=== PATIENT | female | born 1930 | race Caucasian/White ===

== ENCOUNTER 2016-05-12 14:01 | Outpatient (CLI) | payer MEDICARE, OTHER ==
[2016-05-12 19:09] LABS: BASOPHILS # (AUTO) 0.1 10^3/uL (0.0-0.1); BASOPHILS % (AUTO) 1.2 %; EOSINOPHILS # (AUTO) 0.2 10^3/uL (0.0-0.7); EOSINOPHILS % (AUTO) 2.6 %; HCT - HEMATOCRIT 37.9 % (37.0-47.0); HGB - HEMOGLOBIN 12.9 g/dL (12.0-16.0); LYMPHOCYTES # (AUTO) 1.6 10^3/uL (1.5-3.5); LYMPHOCYTES % (AUTO) 22.2 %; MEAN CORPUSCULAR HEMOGLOBIN 32.7 pg (27.0-31.0); MEAN CORPUSCULAR HGB CONC 33.9 g/dL (32.0-36.0); MEAN CORPUSCULAR VOLUME 96.4 fL (81.0-99.0); MEAN PLATELET VOLUME 8.3 fL (7.9-10.8); MONOCYTES # (AUTO) 0.7 10^3/uL (0.0-1.0); MONOCYTES % (AUTO) 9.4 %; NEUTROPHILS # (AUTO) 4.8 10^3/uL (1.5-6.6); NEUTROPHILS % (AUTO) 64.6 %; NUCLEATED RED BLOOD CELLS AUTO 0.1 /100WBC; RED BLOOD COUNT 3.93 10^6/uL (4.20-5.40); RED CELL DISTRIBUTION WIDTH 12.8 % (12.0-15.0); UNCORRECTED WHITE BLOOD COUNT 7.4 x10^3/uL; WHITE BLOOD COUNT 7.4 x10^3/uL (4.8-10.8)
[2016-05-12 19:33] LABS: ALBUMIN/GLOBULIN RATIO 1.6 (1.0-2.2); BILIRUBIN,TOTAL 0.4 mg/dL (0.2-1.0); CALCIUM 9.5 mg/dL (8.5-10.3); CREATININE 0.9 mg/dL (0.4-1.0); POTASSIUM 4.1 mmol/L (3.5-5.0); TOTAL PROTEIN 6.6 g/dL (6.7-8.2)
== END 2016-05-12 14:02 | disposition home or self-care (01) ==
LOC: LAB.WCP 14:01
PROVIDERS: ATTEND Family Medicine
DX: I10 Essential (primary) hypertension (principal); D51.0 Vitamin B12 deficiency anemia due to intrinsic factor deficiency; R00.2 Palpitations
CPT/HCPCS: 36415; 80053; 82607; 85025

== ENCOUNTER 2016-06-14 10:43 | Outpatient (CLI) | payer MEDICARE, OTHER | END 2016-06-14 10:44 | DX: D51.0 Vitamin B12 deficiency anemia due to intrinsic factor deficiency (principal) ==

== ENCOUNTER 2016-07-18 09:58 | Outpatient (CLI) | payer MEDICARE, OTHER | END 2016-07-18 09:59 | disposition home or self-care (01) | DX: M81.0 Age-related osteoporosis without current pathological fracture (principal) ==

== ENCOUNTER 2016-08-02 10:06 | Outpatient (CLI) | payer MEDICARE, OTHER | END 2016-08-02 10:07 | disposition home or self-care (01) | DX: M25.561 Pain in right knee (principal); R22.41 Localized swelling, mass and lump, right lower limb ==

== ENCOUNTER 2016-08-27 12:31 | Outpatient (CLI) | payer MEDICARE, OTHER | END 2016-08-27 12:32 | disposition home or self-care (01) | LOC: DI 12:31 | PROVIDERS: ATTEND Family Medicine | DX: I49.3 Ventricular premature depolarization (principal) | CPT/HCPCS: 93306 ==

== ENCOUNTER 2016-10-30 06:47 | Emergency (ER) | payer MEDICARE, OTHER ==
[2016-10-30 06:57] VITALS: BP 141/86
[2016-10-30 07:04] LABS: BILIRUBIN,URINE NEGATIVE (NEGATIVE)
--- NOTE | 2016-10-30 07:04 | ED Physician Documentation ---
PD HPI FEMALE - Stated complaint Stated Complaint: FEMALE - Chief complaint Chief Complaint: General - History obtained from History obtained from: Patient - History of Present Illness Timing - onset: Yesterday Timing - duration: Days (1) Timing - details: Gradual onset Pain level max: 0, 2 Pain level max: 1 Associated symptoms: Dysuria, Urinary frequency, Hematuria. No: Fever, Back pain, Vaginal pain, Vaginal bleeding, Vaginal discharge Similar symptoms before: Diagnosis (UTI) Review of Systems Constitutional: denies: Fever, Chills Ears: denies: Ear pain Nose: denies: Rhinorrhea / runny nose, Congestion Throat: denies: Sore throat Cardiac: denies: Chest pain / pressure Respiratory: denies: Cough, Wheezing GI: denies: Abdominal Pain, Nausea, Vomiting, Diarrhea Skin: denies: Rash Musculoskeletal: denies: Neck pain, Back pain Neurologic: denies: Headache PD PAST MEDICAL HISTORY - Past Medical History Cardiovascular: Hypertension Respiratory: None Neuro: None Endocrine/Autoimmune: None HEENT: Other - Past Surgical History Past Surgical History: Yes General: Colonoscopy, EGD 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 HEENT: Cataracts - Present Medications Home Medications: Ambulatory Orders Medication Instructions Recorded Confirmed Alendronate [Fosamax] 1 tab PO .FREQ 11/22/15 11/22/15 Cyanocobalamin [Vitamin B-12] 1,000 mcg IM ONCE #2 vial 11/22/15 Fluticasone [Flonase] 1 applic REYNA .FREQ 11/22/15 11/22/15 Hydrochlorothiazide 12.5 mg PO .FREQ 11/22/15 11/22/15 Lisinopril 0.5 mg PO .FREQ 11/22/15 11/22/15 Potassium Citrate [Urocit-K] 0.5 tab PO .FREQ 11/22/15 11/22/15 Pramipexole [Mirapex] 0.125 mg PO BID 11/22/15 11/22/15 Cephalexin [Keflex] 500 mg PO Q6H #28 capsule 10/30/16 - Allergies Allergies/Adverse Reactions: Allergies Allergy/AdvReac Type Severity Reaction Status Date / Time nitrofurantoin Allergy Unknown Verified 11/22/15 21:44 nitrofurantoin Allergy Unknown Verified 11/22/15 21:44 macrocrystalline * [From Macrobid] Sulfa (Sulfonamide Allergy Nausea Verified 11/22/15 21:44 Antibiotics) sulfamethoxazole Allergy Nausea Verified 11/22/15 21:44 [From Septra] trimethoprim [From ] Allergy Nausea Verified 11/22/15 21:44 - Social History Does the pt smoke?: No Smoking Status: Never smoker Does the pt drink ETOH?: No Does the pt have substance abuse?: No - Immunizations Immunizations are current?: Yes PD ED PE NORMAL - Vitals Vital signs reviewed: Yes - General General: Alert and oriented X 3, No acute distress - Cardiac Cardiac: RRR - Respiratory Respiratory: No respiratory distress, Clear bilaterally - Abdomen Abdomen: Soft, Non tender, Non distended - Back Back: No CVA TTP - Derm Derm: Warm and dry - Neuro Neuro: Alert and oriented X 3 - Psych Psych: Normal mood, Normal affect Results - Vitals Vitals: Vital Signs - 24 hr 10/30/16 06:54 Temperature 36.6 C Heart Rate 89 Respiratory 16 Rate Blood Pressure 141/86 H O2 Saturation 99 Oxygen O2 Source Room air - Labs Labs: Laboratory Tests 10/30/16 06:50 Urine Color YELLOW Urine Clarity HAZY Urine pH 6.0 Ur Specific [place] 1.025 Urine Protein TRACE Urine Glucose (UA) NEGATIVE Urine Ketones 40 H Urine Occult Blood MODERATE H Urine Nitrite POSITIVE H Urine Bilirubin NEGATIVE Urine Urobilinogen 0.2 (NORMAL) Ur Leukocyte Esterase MODERATE H Urine RBC 11-25 H Urine WBC >25 H Ur Squamous Epith Cells FEW Squamous Urine Bacteria Many H Ur Microscopic Review INDICATED Urine Culture Comments INDICATED PD MEDICAL DECISION MAKING - ED course Complexity details: reviewed results, re-evaluated patient, considered differential, d/w patient, d/w family ED course: Patient is an 86-year-old female who presents to the emergency department with symptoms of UTI. Urinalysis is consistent with UTI. No other complaints. No fevers. She is well-appearing, nontoxic. Afebrile. No CVA tenderness. Will place on antibiotics and follow-up with her doctor. Patient counseled regarding signs and symptoms for which I believe and urgent re-evaluation would be necessary. Patient with good understanding of and agreement to plan and is comfortable going home at this time This document was made in part using voice recognition software. While efforts are made to proofread this document, sound alike and grammatical errors may occur. Departure - Departure Disposition: 01 Home, Self Care Clinical Impression: UTI (urinary tract infection) Qualifiers: Urinary tract infection type: acute cystitis Hematuria presence: with hematuria Qualified Code(s): N30.01 - Acute cystitis with hematuria Condition: Good Instructions: ED UTI Cystitis Female Follow-Up: Isabel Monroy DO [Primary Care Provider] - Within 1 week Prescriptions: Cephalexin [Keflex] 500 mg PO Q6H #28 capsule Comments: Take all antibiotics until gone. Return if you worsen.
[2016-10-30 07:05] LABS: UA w/ MICROSCOPIC CHARGE YES
[2016-10-30] MEDS ORDERED: CEPHALEXIN 250 MG CAPSULE PO STA (07:07)
[2016-10-30 07:12] LABS: WBC,URINE >25 /HPF (0-5)
[2016-10-30 07:13] LABS: UR CULTURE IF IND INDICATED
[2016-10-30] MEDS ORDERED: CEPHALEXIN 250 MG CAPSULE PO ONE (07:15)
== END 2016-10-30 07:23 | disposition home or self-care (01) ==
LOC: ED 06:47
DX: N30.01 Acute cystitis with hematuria (principal); I10 Essential (primary) hypertension; Z96.659 Presence of unspecified artificial knee joint
CPT/HCPCS: 81001; 87077; 87086; 87181; 99283; A9270; 81003

== ENCOUNTER 2017-01-10 08:45 | Outpatient (CLI) | payer MEDICARE, OTHER ==
--- NOTE | 2017-01-10 15:21 | DEXA Report ---
DEXA SCAN: 01/10/2017 CLINICAL INDICATION: Osteoporosis. TECHNIQUE: Dual energy x-ray absorptiometry (DXA) was performed on a [employer] system. Regions measured are the AP spine, femoral neck, and, if needed, forearm. COMPARISON: 07/18/2016. In accordance with the International Society for Clinical Densitometry (ISCD) guidelines, data from previous exams may be reanalyzed using current recommendations and techniques. This is done to allow a more accurate basis for comparison with the current study. FINDINGS The data for the lumbar spine is as follows: REGION BMD (g/cm/cm) T-SCORE Z-SCORE L1 1.228 0.8 3.2 L2 1.317 1.0 3.4 L3 1.385 1.5 3.9 L4 1.567 3.1 5.5 TOTAL 1.379 1.7 4.1 NOTE: All evaluable vertebrae are used for classification. The data for the hip is as follows: REGION BMD (g/cm/cm) T-SCORE Z-SCORE Neck 0.677 -2.6 0.2 TOTAL 0.722 -2.3 0.5 NOTE: The femoral neck or total proximal femur, whichever is lowest, is used for classification. DXA RESULTS SUMMARY: Spine SCAN DATE AGE BMD T-SCORE BMD CHANGE VS BASELINE BMD CHANGE VS PREVIOUS 01/10/2017 87 1.379 -- 0.013 1.0 07/18/2016 86 1.366 --- --- --- * Denotes significant change at the 95% confidence level. Denotes dissimilar scan types or analysis methods. DXA RESULTS SUMMARY: Total hip SCAN DATE AGE BMD T-SCORE BMD CHANGE VS BASELINE BMD CHANGE VS PREVIOUS 01/10/2017 87 0.722 --- 0.015 2.1 07/18/2016 86 0.707 --- --- --- * Denotes significant change at the 95% confidence level. Denotes dissimilar scan types or analysis methods. IMPRESSION 1. THE WHO CLASSIFICATION BASED ON THE INTERNATIONAL REFERENCE STANDARD IS OSTEOPOROSIS (REFERENCE LEFT FEMORAL NECK. THE FRACTURE RISK IS HIGH. 2. THERE HAS BEEN NO STATISTICALLY SIGNIFICANT INTERVAL CHANGE FROM 07/18/2016. RECOMMENDATION: Patients with diagnosis of osteoporosis or osteopenia should have regular bone mineral density assessment. For those eligible for Medicare, routine testing is allowed once every 2 years. Testing frequency can be increased for patients who have rapidly progressing disease or for those who are receiving medical therapy to restore bone mass. COMMENT: World Health Organization (WHO) definitions for osteoporosis and osteopenia: NORMAL BMD: T-score at -1.0 or higher, fracture risk is low. OSTEOPENIA BMD: T-score between -1.0 and -2.5, fracture risk is increased. OSTEOPOROSIS BMD: T-score at -2.5 or lower, fracture risk high. National Osteoporosis Foundation recommends: 1. Obtain adequate dietary calcium (at least 1200 mg per day) and vitamin D (400 -800 international units per day). 2. Participate, as appropriate, in regular weightbearing and muscle- strengthening exercise. 3. Avoid tobacco use and reduce alcohol and caffeine intake. 4. For more detailed information see the website at www.NOF.org. MTDD
== END 2017-01-10 08:46 | disposition home or self-care (01) ==
LOC: DI 08:45
PROVIDERS: ATTEND Family Medicine
DX: M81.0 Age-related osteoporosis without current pathological fracture (principal)
CPT/HCPCS: 77080

== ENCOUNTER 2017-01-18 11:40 | Outpatient (CLI) | payer MEDICARE, OTHER ==
[2017-01-18 19:00] LABS: BASOPHILS % (AUTO) 0.8 %; EOSINOPHILS # (AUTO) 0.1 10^3/uL (0.0-0.7); EOSINOPHILS % (AUTO) 1.6 %; HGB - HEMOGLOBIN 12.8 g/dL (12.0-16.0); LYMPHOCYTES # (AUTO) 0.9 10^3/uL (1.5-3.5); LYMPHOCYTES % (AUTO) 17.4 %; MEAN CORPUSCULAR HEMOGLOBIN 32.2 pg (27.0-31.0); MEAN CORPUSCULAR VOLUME 97.6 fL (81.0-99.0); MEAN PLATELET VOLUME 7.3 fL (7.9-10.8); MONOCYTES # (AUTO) 0.5 10^3/uL (0.0-1.0); MONOCYTES % (AUTO) 9.9 %; NEUTROPHILS # (AUTO) 3.6 10^3/uL (1.5-6.6); NEUTROPHILS % (AUTO) 70.3 %; NUCLEATED RED BLOOD CELLS AUTO 0.1 /100WBC; RED BLOOD COUNT 3.99 10^6/uL (4.20-5.40); UNCORRECTED WHITE BLOOD COUNT 5.1 x10^3/uL; WHITE BLOOD COUNT 5.1 x10^3/uL (4.8-10.8)
[2017-01-18 19:17] LABS: ALBUMIN/GLOBULIN RATIO 1.5 (1.0-2.2); BILIRUBIN,TOTAL 0.5 mg/dL (0.2-1.0); CALCIUM 9.1 mg/dL (8.5-10.3); CREATININE 0.7 mg/dL (0.4-1.0); POTASSIUM 3.8 mmol/L (3.5-5.0); TOTAL PROTEIN 6.6 g/dL (6.7-8.2)
== END 2017-01-18 11:41 | disposition home or self-care (01) ==
LOC: LAB.WCP 11:40
PROVIDERS: ATTEND Family Medicine
DX: M81.0 Age-related osteoporosis without current pathological fracture (principal); D51.0 Vitamin B12 deficiency anemia due to intrinsic factor deficiency
CPT/HCPCS: 36415; 80053; 82306; 82607; 85025

== ENCOUNTER 2017-07-17 08:00 | Outpatient (CLI) | payer MEDICARE, OTHER ==
[2017-07-17 19:22] LABS: BASOPHILS # (AUTO) 0.1 10^3/uL (0.0-0.1); BASOPHILS % (AUTO) 0.9 %; EOSINOPHILS # (AUTO) 0.1 10^3/uL (0.0-0.7); EOSINOPHILS % (AUTO) 1.4 %; HGB - HEMOGLOBIN 12.8 g/dL (12.0-16.0); LYMPHOCYTES # (AUTO) 1.4 10^3/uL (1.5-3.5); LYMPHOCYTES % (AUTO) 18.8 %; MEAN CORPUSCULAR HEMOGLOBIN 32.8 pg (27.0-31.0); MEAN CORPUSCULAR HGB CONC 34.1 g/dL (32.0-36.0); MEAN CORPUSCULAR VOLUME 96.2 fL (81.0-99.0); MEAN PLATELET VOLUME 7.5 fL (7.9-10.8); MONOCYTES # (AUTO) 0.7 10^3/uL (0.0-1.0); MONOCYTES % (AUTO) 9.8 %; NEUTROPHILS % (AUTO) 69.1 %; PLT - PLATELET COUNT 286 10^3/uL (130-450); RED BLOOD COUNT 3.91 10^6/uL (4.20-5.40); RED CELL DISTRIBUTION WIDTH 12.5 % (12.0-15.0); WHITE BLOOD COUNT 7.2 x10^3/uL (4.8-10.8)
[2017-07-17 19:44] LABS: % IRON SATURATION 20 % (20-50); ALBUMIN 4.2 g/dL (3.2-5.5); ALBUMIN/GLOBULIN RATIO 1.7 (1.0-2.2); ALKALINE PHOSPHATASE 70 IU/L (42-121); ALT ALANINE AMINOTRANSFERASE 14 IU/L (10-60); AST ASPARTATE AMINOTRANSFERASE 24 IU/L (10-42); BILIRUBIN,TOTAL 0.3 mg/dL (0.2-1.0); BUN - BLOOD UREA NITROGEN 19 mg/dL (6-20); CALCIUM 9.3 mg/dL (8.5-10.3); CARBON DIOXIDE - CO2 29 mmol/L (21-32); CHLORIDE 99 mmol/L (101-111); CREATININE 0.6 mg/dL (0.4-1.0); GFR - MDRD 94 (>89); GLUCOSE 107 mg/dL (70-100); IRON 61 ug/dL (28-170); SODIUM 135 mmol/L (135-145); TOTAL IRON BINDING CAPACITY 307 ug/dL (250-450); TOTAL PROTEIN 6.7 g/dL (6.7-8.2); TRANSFERRIN 219 mg/dL (192-382)
[2017-07-17 19:53] LABS: THYROID STIMULATING HORMONE 1.52 uIU/mL (0.34-5.60)
[2017-07-17 19:59] LABS: FERRITIN 33.1 ng/mL (11.0-306.8)
== END 2017-07-17 08:01 | disposition home or self-care (01) ==
LOC: LAB.WCP 08:00
PROVIDERS: ATTEND Family Medicine
DX: D51.0 Vitamin B12 deficiency anemia due to intrinsic factor deficiency (principal); I10 Essential (primary) hypertension
CPT/HCPCS: 36415; 80053; 82607; 82728; 83540; 84443; 84466; 85025

== ENCOUNTER 2017-09-26 09:36 | Outpatient (CLI) | payer MEDICARE, OTHER ==
[2017-09-26 12:42] LABS: BASOPHILS # (AUTO) 0.1 10^3/uL (0.0-0.1); BASOPHILS % (AUTO) 0.9 %; EOSINOPHILS # (AUTO) 0.1 10^3/uL (0.0-0.7); EOSINOPHILS % (AUTO) 1.5 %; HGB - HEMOGLOBIN 13.2 g/dL (12.0-16.0); LYMPHOCYTES % (AUTO) 16.5 %; MEAN CORPUSCULAR HEMOGLOBIN 33.3 pg (27.0-31.0); MEAN CORPUSCULAR HGB CONC 33.9 g/dL (32.0-36.0); MEAN CORPUSCULAR VOLUME 98.2 fL (81.0-99.0); MEAN PLATELET VOLUME 7.3 fL (7.9-10.8); MONOCYTES # (AUTO) 0.5 10^3/uL (0.0-1.0); MONOCYTES % (AUTO) 7.7 %; NEUTROPHILS # (AUTO) 4.4 10^3/uL (1.5-6.6); NEUTROPHILS % (AUTO) 73.4 %; PLT - PLATELET COUNT 309 10^3/uL (130-450); RED BLOOD COUNT 3.97 10^6/uL (4.20-5.40); RED CELL DISTRIBUTION WIDTH 12.2 % (12.0-15.0)
[2017-09-26 12:49] LABS: BILIRUBIN,URINE NEGATIVE (NEGATIVE); GLUCOSE, URINE (UA) NEGATIVE (NEGATIVE); KETONES,URINE (UA) TRACE mg/dL (NEGATIVE); LEUKOCYTE ESTERASE, URINE SMALL (NEGATIVE); NITRITE,URINE POSITIVE (NEGATIVE); OCCULT BLOOD,URINE NEGATIVE (NEGATIVE); PROTEIN,URINE NEGATIVE (NEGATIVE); UROBILINOGEN,URINE 1 (NORMAL) E.U./dL (NORMAL)
[2017-09-26 12:54] LABS: CLARITY,URINE HAZY (CLEAR)
[2017-09-26 13:03] LABS: BACTERIA,URINE Moderate /HPF (None Seen); RBC,URINE 0-5 /HPF (0-5); SQUAMOUS EPITHELIAL CELL,UR FEW Squamous (<= Few)
[2017-09-26 13:16] LABS: ALBUMIN 3.8 g/dL (3.2-5.5); ALBUMIN/GLOBULIN RATIO 1.3 (1.0-2.2); BILIRUBIN,TOTAL 0.6 mg/dL (0.2-1.0); CALCIUM 9.4 mg/dL (8.5-10.3); CREATININE 0.8 mg/dL (0.4-1.0); TOTAL PROTEIN 6.7 g/dL (6.7-8.2)
== END 2017-09-26 09:37 | disposition home or self-care (01) ==
LOC: LAB.WCP 09:36
PROVIDERS: ATTEND Family Medicine
DX: R42 Dizziness and giddiness (principal)
CPT/HCPCS: 36415; 80053; 81001; 85025; 87086; 87181

== ENCOUNTER 2018-04-06 08:32 | Emergency (ER) | payer MEDICARE, OTHER ==
[2018-04-06] MEDS ORDERED: NEOMYCIN/POLYMYX/HC OTIC DROPS RIGHTEAR STA (10:11)
--- NOTE | 2018-04-06 10:13 | ED Physician Documentation ---
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 HEENT: Cataracts - Present Medications Home Medications: Ambulatory Orders Medication Instructions Recorded Confirmed Alendronate [Fosamax] 1 tab PO .FREQ 11/22/15 11/22/15 Cyanocobalamin [Vitamin B-12] 1,000 mcg IM ONCE #2 vial 11/22/15 Fluticasone [Flonase] 1 applic REYNA .FREQ 11/22/15 11/22/15 Lisinopril 0.5 mg PO .FREQ 11/22/15 11/22/15 Potassium Citrate [Urocit-K] 0.5 tab PO .FREQ 11/22/15 11/22/15 Pramipexole [Mirapex] 0.125 mg PO BID 11/22/15 11/22/15 hydroCHLOROthiazide 12.5 mg PO .FREQ 11/22/15 11/22/15 [Hydrochlorothiazide] Cephalexin [Keflex] 500 mg PO Q6H #28 capsule 10/30/16 Neomycin/Polymyx/Hc Otic Drops 4 drops OT QID 4 Days #1 bottle 04/06/18 [Cortisporin Ear Susp] - Allergies Allergies/Adverse Reactions: Allergies Allergy/AdvReac Type Severity Reaction Status Date / Time nitrofurantoin Allergy Unknown Verified 11/22/15 21:44 nitrofurantoin Allergy Unknown Verified 11/22/15 21:44 macrocrystalline * [From Macrobid] Sulfa (Sulfonamide Allergy Nausea Verified 11/22/15 21:44 Antibiotics) sulfamethoxazole Allergy Nausea Verified 11/22/15 21:44 [From Septra] trimethoprim [From Septra] Allergy Nausea Verified 11/22/15 21:44 - Social History Does the pt smoke?: No Smoking Status: Never smoker Does the pt drink ETOH?: No Does the pt have substance abuse?: No - Immunizations Immunizations are current?: Yes PD ED PE NORMAL - Vitals Vital signs reviewed: Yes - HEENT HEENT: Other (white FB in R canal) Results - Vitals Vitals: Vital Signs - 24 hr 04/06/18 08:56 Temperature 36.4 C L Heart Rate 105 H Respiratory 14 Rate Blood Pressure 157/94 H O2 Saturation 97 Oxygen O2 Source Room air PD MEDICAL DECISION MAKING - ED course ED course: eaily removed whute rubber cup from canal intact, recheck after removal = no further FB and slight pressure abrasion where with was lodged Departure - Departure Disposition: 01 Home, Self Care Clinical Impression: Ear foreign body Qualifiers: Encounter type: initial encounter Laterality: right Qualified Code(s): T16.1XXA - Foreign body in right ear, initial encounter Condition: Good Instructions: ED Foreign Body Ear Canal Prescriptions: Neomycin/Polymyx/Hc Otic Drops [Cortisporin Ear Susp] 4 drops OT QID 4 Days #1 bottle
[2018-04-06 10:28] VITALS: BP 154/97
== END 2018-04-06 10:29 | disposition home or self-care (01) ==
LOC: ED 08:32
DX: T16.1XXA Foreign body in right ear, initial encounter (principal); X58.XXXA Exposure to other specified factors, initial encounter; I10 Essential (primary) hypertension; Z96.659 Presence of unspecified artificial knee joint
CPT/HCPCS: 69200; 99283; A9270

== ENCOUNTER 2018-05-11 11:51 | Outpatient (CLI) | payer MEDICARE, OTHER ==
[2018-05-11] MEDS ORDERED: AMINOPHYLLINE 250 MG/10 ML VIAL IV ONE (11:52)
[2018-05-11] MEDS ORDERED: REGADENOSON 0.4 MG/5 ML SYRINGE IVP ONE ×2 (13:28→15:11)
--- NOTE | 2018-05-11 15:04 | CARDIAC PROCEDURE NOTE ---
DATE OF SERVICE: 05/11/2018 Physician: Jessy Torres MD, [facility] INDICATIONS 1. Dyspnea on exertion. 2. Abnormal EKG. CARDIAC RISK FACTORS 1. Advanced age. 2. Postmenopausal status. 3. Family history of heart disease. PROCEDURE: After signing informed consent, the patient underwent a Lexiscan pharmaceutical stress test with nuclear myocardial perfusion imaging. Lexiscan was infused per protocol. The patient had brief "palpitations" and wooziness. There was no chest pain or shortness of breath. Oxygen saturation at rest was 95% on room air and 98% at peak. RESTING HEART RATE: 110 in sinus tachycardia. PEAK HEAR RATE: 115. RESTING BLOOD PRESSURE: 151/78. PEAK BLOOD PRESSURE: 150/75. Blood pressure dropped when she sat up from a supine position to 130/65. She was given caffeinated fluids p.o., and blood pressure improved to 159/65. After several more minutes she was again "woozy" and asked to lie down. BP was 168/80. Patient was given Aminophylline 50 mg iv, for reversal, and she drank a glass of water. Her symptoms improved. BP was 178/85 as she exited. EKG AT REST: Sinus tachycardia, left atrial and right atrial enlargement, nonspecific inferolateral ST segment scooping. EKG AT PEAK: Similar inferolateral ST segment scooping and more frequent PACs than PVCs. SUMMARY 1. Abnormal resting EKG. 2. Indeterminate ischemic changes on this EKG due to baseline abnormality. 3. Nuclear images reported separately. cc: Isabel Monroy DO TD: 05/11/2018 14:48 MTDD
--- NOTE | 2018-05-11 16:29 | Nuclear Medicine Report ---
Reason: MARK FU EKG Procedure Date: 05/11/2018 Accession Number: [id number] / [id number] Procedure: NM - Myocardial Perfusion STR/RST CPT Code: FULL RESULT: EXAM: SINGLE-ISOTOPE PHARMACOLOGICAL STRESS TEST WITH REGADENOSON. SINGLE-ISOTOPE AND ONE-DAY REST/STRESS MYOCARDIAL PERFUSION SCANS WITH TOMOGRAPHIC IMAGING, QUANTITATIVE ANALYSIS, WALL MOTION ANALYSIS AND CALCULATION OF EJECTION FRACTION. EXAM DATE: 05/11/2018 01:06 PM. CLINICAL HISTORY: Dyspnea on exertion, abnormal EKG COMPARISON: None available. TECHNIQUE: After the intravenous administration of 9.9 mCi of Tc-99m sestamibi, a rest myocardial perfusion scan was done with tomography. Motion correction was applied when appropriate. After an appropriate delay, pharmacological stress was performed with the infusion of 0.4 mg regadenoson per protocol. According to protocol, 43.6 mCi of Tc-99m sestamibi was injected for stress myocardial perfusion scan. Motion correction was applied when appropriate. Gated tomographic images were obtained for wall motion analysis and computation of left ventricular ejection fraction. FINDINGS: On visual analysis, no fixed or reversible perfusion defects are evident. Computer analysis: Summed stress score 0 Summed rest score 0 Summed difference score 0 Wall motion analysis demonstrates no focal wall motion abnormality. The left ventricular end-diastolic volume is 44 cc. The left ventricular end-systolic volume is 7 cc. The left ventricular ejection fraction is calculated to be 84%. IMPRESSION: 1. On visual analysis, no fixed or reversible perfusion defects are evident. 2. Left ventricular ejection fraction of >65%. 3. Normal segmental and global wall motion. 4. Normal left ventricular cavity size, no change with stress. 5. On computer analysis, normal exam with no ischemia. RADIA
== END 2018-05-11 11:52 | disposition home or self-care (01) ==
LOC: DI 11:51
PROVIDERS: ATTEND Family Medicine
DX: R06.00 Dyspnea, unspecified (principal); R94.31 Abnormal electrocardiogram [ECG] [EKG]
CPT/HCPCS: 78452; 93017; A9500; J2785

== ENCOUNTER 2018-07-02 12:03 | Emergency (ER) | payer MEDICARE, OTHER ==
[2018-07-02 14:25] LABS: BILIRUBIN,URINE NEGATIVE (NEGATIVE); GLUCOSE, URINE (UA) NEGATIVE (NEGATIVE); KETONES,URINE (UA) NEGATIVE (NEGATIVE); LEUKOCYTE ESTERASE, URINE TRACE (NEGATIVE); NITRITE,URINE POSITIVE (NEGATIVE); OCCULT BLOOD,URINE NEGATIVE (NEGATIVE); PH,URINE 6.5 PH (5.0-7.5); PROTEIN,URINE NEGATIVE (NEGATIVE); UROBILINOGEN,URINE 0.2 (NORMAL) E.U./dL (NORMAL)
[2018-07-02 14:26] LABS: CLARITY,URINE SL. CLOUDY (CLEAR)
--- NOTE | 2018-07-02 14:28 | ED Physician Documentation ---
History of Present Illness - Stated complaint Stated Complaint: FEMALE - Chief complaint Chief Complaint: UTI - History obtained from History obtained from: Patient - Additonal information Additional information: Patient is an 88-year-old female presenting with approximately 1 week of urinary frequency and urgency. Patient has concern for possible urinary tract infection as she has had them in the past and symptoms are similar. Patient denies dysuria, hematuria, abdominal pain, flank pain, fever, nausea, vomiting, or stool changes. Patient denies any particular worsening or improving factors to her symptoms. 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 HEENT: Cataracts - Present Medications Home Medications: Ambulatory Orders Medication Instructions Recorded Confirmed Alendronate [Fosamax] 1 tab PO .FREQ 11/22/15 11/22/15 Cyanocobalamin [Vitamin B-12] 1,000 mcg IM ONCE #2 vial 11/22/15 Fluticasone [Flonase] 1 applic REYNA .FREQ 11/22/15 11/22/15 Lisinopril 0.5 mg PO .FREQ 11/22/15 11/22/15 Potassium Citrate [Urocit-K] 0.5 tab PO .FREQ 11/22/15 11/22/15 Pramipexole [Mirapex] 0.125 mg PO BID 11/22/15 11/22/15 hydroCHLOROthiazide 12.5 mg PO .FREQ 11/22/15 11/22/15 [Hydrochlorothiazide] Cephalexin [Keflex] 500 mg PO Q6H #28 capsule 10/30/16 Neomycin/Polymyx/Hc Otic Drops 4 drops OT QID 4 Days #1 bottle 04/06/18 [Cortisporin Ear Susp] Cephalexin [Keflex] 500 mg PO BID #14 capsule 07/02/18 - Allergies Allergies/Adverse Reactions: Allergies Allergy/AdvReac Type Severity Reaction Status Date / Time nitrofurantoin Allergy Unknown Verified 07/02/18 12:46 nitrofurantoin Allergy Unknown Verified 07/02/18 12:46 macrocrystalline * [From Macrobid] Sulfa (Sulfonamide Allergy Nausea Verified 07/02/18 12:46 Antibiotics) sulfamethoxazole Allergy Nausea Verified 07/02/18 12:46 [From Septra] trimethoprim [From Septra] Allergy Nausea Verified 07/02/18 12:46 - Social History Does the pt smoke?: No Smoking Status: Never smoker Does the pt drink ETOH?: No Does the pt have substance abuse?: No - Immunizations Immunizations are current?: Yes PD ED PE NORMAL - General General: Alert and oriented X 3, No acute distress, Well developed/nourished - HEENT HEENT: Atraumatic - Cardiac Cardiac: RRR, No murmur - Respiratory Respiratory: No respiratory distress, Clear bilaterally - Abdomen Abdomen: Normal bowel sounds, Soft, Non tender, Non distended - Back Back: No CVA TTP - Derm Derm: Normal color, Warm and dry, No rash - Extremities Extremities: No deformity - Neuro Neuro: Alert and oriented X 3 - Psych Psych: Normal mood, Normal affect Results - Vitals Vitals: Vital Signs - 24 hr 07/02/18 12:43 Temperature 36.7 C Heart Rate 99 Respiratory 18 Rate Blood Pressure 139/61 H O2 Saturation 100 Oxygen O2 Source Room air - Labs Labs: Laboratory Tests 07/02/18 13:46 Urine Color YELLOW Urine Clarity [place]. [place]DY Urine pH 6.5 Ur Specific [place] 1.015 Urine Protein NEGATIVE Urine Glucose (UA) NEGATIVE Urine Ketones NEGATIVE Urine Occult Blood NEGATIVE Urine Nitrite POSITIVE H Urine Bilirubin NEGATIVE Urine Urobilinogen 0.2 (NORMAL) Ur Leukocyte Esterase TRACE H Ur Microscopic Review INDICATED Urine Culture Comments Not Reportable PD MEDICAL DECISION MAKING - ED course Complexity details: reviewed results, considered differential, d/w patient ED course: Most concerning for urinary tract infection given patient's similar episodes, consolation of symptoms, and physical exam findings. No signs of systemic illness or sepsis present. Have low suspicion for pyelonephritis or nephrolithiasis, as well as any intra-abdominal pathology given symptoms and physical exam findings. Patient reports allergies to sulfa drugs, as well as Macrobid and therefore Keflex prescribed. Discussed supportive cares, use of medications, return precautions, and appropriate follow-up. Patient voiced understanding and is comfortable with discharge plan. Departure - Departure Disposition: 01 Home, Self Care Clinical Impression: Cystitis UTI (urinary tract infection) Qualifiers: Urinary tract infection type: site unspecified Hematuria presence: without hematuria Qualified Code(s): N39.0 - Urinary tract infection, site not specified Condition: Good Instructions: ED UTI Cystitis Female Follow-Up: Isabel Monroy DO [Primary Care Provider] - Within 3 Days Prescriptions: Cephalexin [Keflex] 500 mg PO BID #14 capsule Comments: Please continue any home medications as previously prescribed. Please take Keflex as instructed to treat bladder infection. Also recommend hydration, healthy diet, and follow-up with your primary care physician in the next 2-3 days. Return to ED sooner if he expands worsening symptoms or have other concerns.
[2018-07-02 14:41] VITALS: BP 135/62
[2018-07-02 14:42] LABS: BACTERIA,URINE Few /HPF (None Seen); RBC,URINE 0-5 /HPF (0-5); SQUAMOUS EPITHELIAL CELL,UR FEW Squamous (<= Few)
== END 2018-07-02 14:41 | disposition home or self-care (01) ==
LOC: ED 12:03
DX: N30.90 Cystitis, unspecified without hematuria (principal); I10 Essential (primary) hypertension; Z88.1 Allergy status to other antibiotic agents; Z88.2 Allergy status to sulfonamides
CPT/HCPCS: 81001; 81003; 87086; 87181; 99283

== ENCOUNTER 2018-07-11 08:54 | Outpatient (CLI) | payer MEDICARE, OTHER ==
[2018-07-11 12:31] LABS: BASOPHILS # (AUTO) 0.1 10^3/uL (0.0-0.1); BASOPHILS % (AUTO) 1.3 %; EOSINOPHILS # (AUTO) 0.2 10^3/uL (0.0-0.7); HGB - HEMOGLOBIN 12.7 g/dL (12.0-16.0); LYMPHOCYTES # (AUTO) 1.2 10^3/uL (1.5-3.5); LYMPHOCYTES % (AUTO) 21.4 %; MEAN CORPUSCULAR HEMOGLOBIN 32.2 pg (27.0-31.0); MEAN CORPUSCULAR HGB CONC 33.6 g/dL (32.0-36.0); MEAN CORPUSCULAR VOLUME 95.8 fL (81.0-99.0); MEAN PLATELET VOLUME 7.6 fL (7.9-10.8); MONOCYTES # (AUTO) 0.6 10^3/uL (0.0-1.0); MONOCYTES % (AUTO) 9.8 %; NEUTROPHILS # (AUTO) 3.7 10^3/uL (1.5-6.6); NEUTROPHILS % (AUTO) 64.5 %; PLT - PLATELET COUNT 285 10^3/uL (130-450); RED BLOOD COUNT 3.96 10^6/uL (4.20-5.40); RED CELL DISTRIBUTION WIDTH 12.8 % (12.0-15.0); WHITE BLOOD COUNT 5.7 x10^3/uL (4.8-10.8)
[2018-07-11 13:38] LABS: ALBUMIN 3.9 g/dL (3.2-5.5); ALBUMIN/GLOBULIN RATIO 1.4 (1.0-2.2); BILIRUBIN,TOTAL 0.6 mg/dL (0.2-1.0); CALCIUM 8.7 mg/dL (8.5-10.3); CREATININE 0.6 mg/dL (0.4-1.0); TOTAL PROTEIN 6.6 g/dL (6.7-8.2)
[2018-07-11 13:42] LABS: THYROID STIMULATING HORMONE 2.35 uIU/mL (0.34-5.60)
== END 2018-07-11 23:59 | disposition home or self-care (01) ==
LOC: LAB.WCP 08:54
PROVIDERS: ATTEND Family Medicine
DX: D51.0 Vitamin B12 deficiency anemia due to intrinsic factor deficiency (principal); R53.83 Other fatigue
CPT/HCPCS: 36415; 80053; 82607; 84443; 85025

== ENCOUNTER 2018-07-15 09:40 | Emergency (ER) | payer MEDICARE, OTHER ==
[2018-07-15 10:00] VITALS: BP 191/114
[2018-07-15 11:00] LABS: BILIRUBIN,URINE NEGATIVE (NEGATIVE); GLUCOSE, URINE (UA) NEGATIVE (NEGATIVE); KETONES,URINE (UA) NEGATIVE (NEGATIVE); LEUKOCYTE ESTERASE, URINE NEGATIVE (NEGATIVE); NITRITE,URINE NEGATIVE (NEGATIVE); OCCULT BLOOD,URINE TRACE-LYSE (NEGATIVE); PROTEIN,URINE TRACE mg/dL (NEGATIVE); UROBILINOGEN,URINE 0.2 (NORMAL) E.U./dL (NORMAL)
[2018-07-15 11:02] LABS: CLARITY,URINE CLEAR (CLEAR)
[2018-07-15 11:59] LABS: BASOPHILS # (AUTO) 0.1 10^3/uL (0.0-0.1); EOSINOPHILS # (AUTO) 0.1 10^3/uL (0.0-0.7); EOSINOPHILS % (AUTO) 2.4 %; LYMPHOCYTES % (AUTO) 16.6 %; MEAN CORPUSCULAR HEMOGLOBIN 32.2 pg (27.0-31.0); MEAN CORPUSCULAR HGB CONC 33.6 g/dL (32.0-36.0); MEAN CORPUSCULAR VOLUME 95.8 fL (81.0-99.0); MEAN PLATELET VOLUME 7.4 fL (7.9-10.8); MONOCYTES # (AUTO) 0.5 10^3/uL (0.0-1.0); MONOCYTES % (AUTO) 8.4 %; NEUTROPHILS # (AUTO) 4.3 10^3/uL (1.5-6.6); NEUTROPHILS % (AUTO) 71.6 %; PLT - PLATELET COUNT 262 10^3/uL (130-450); RED BLOOD COUNT 4.05 10^6/uL (4.20-5.40); RED CELL DISTRIBUTION WIDTH 12.5 % (12.0-15.0); WHITE BLOOD COUNT 5.9 x10^3/uL (4.8-10.8)
--- NOTE | 2018-07-15 12:09 | ED Physician Documentation ---
PD HPI FEMALE - Stated complaint Stated Complaint: FEMALE - Chief complaint Chief Complaint: UTI - History obtained from History obtained from: Patient - History of Present Illness Timing - onset: Today (She had a recent Diagnosis of UTI, cx positive for E. coli and was switched to Cipro, finished her last dose yesterday morning. Today having urinary frequency this morning which is now gone, not associated with dysuria, flank pain, fevers, nausea or sweats.) Review of Systems Constitutional: denies: Fever, Chills Respiratory: denies: Dyspnea, Cough GI: denies: Abdominal Pain, Nausea, Diarrhea : reports: Frequency. 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 HEENT: Cataracts - Present Medications Home Medications: Ambulatory Orders Medication Instructions Recorded Confirmed Fluticasone [Flonase] 1 applic REYNA .FREQ 11/22/15 11/22/15 RX: Alendronate [Fosamax] 1 tab PO .FREQ 11/22/15 11/22/15 RX: Cyanocobalamin [Vitamin B-12] 1,000 mcg IM ONCE #2 vial 11/22/15 RX: Lisinopril 0.5 mg PO .FREQ 11/22/15 11/22/15 RX: Potassium Citrate [Urocit-K] 0.5 tab PO .FREQ 11/22/15 11/22/15 RX: Pramipexole [Mirapex] 0.125 mg PO BID 11/22/15 11/22/15 RX: hydroCHLOROthiazide 12.5 mg PO .FREQ 11/22/15 11/22/15 [Hydrochlorothiazide] Cephalexin [Keflex] 500 mg PO Q6H #28 capsule 10/30/16 Neomycin/Polymyx/Hc Otic Drops 4 drops OT QID 4 Days #1 bottle 04/06/18 [Cortisporin Ear Susp] Cephalexin [Keflex] 500 mg PO BID #14 capsule 07/02/18 - Allergies Allergies/Adverse Reactions: Allergies Allergy/AdvReac Type Severity Reaction Status Date / Time nitrofurantoin Allergy Unknown Verified 07/15/18 10:00 nitrofurantoin Allergy Unknown Verified 07/15/18 10:00 macrocrystalline * [From Macrobid] Sulfa (Sulfonamide Allergy Nausea Verified 07/15/18 10:00 Antibiotics) sulfamethoxazole Allergy Nausea Verified 07/15/18 10:00 [From Septra] trimethoprim [From Septra] Allergy Nausea Verified 07/15/18 10:00 - Social History Does the pt smoke?: No Smoking Status: Never smoker Does the pt drink ETOH?: No Does the pt have substance abuse?: No - Immunizations Immunizations are current?: Yes PD ED PE NORMAL - Vitals Vital signs reviewed: Yes - General General: Alert and oriented X 3, No acute distress - Abdomen Abdomen: Soft, Non tender - Back Back: No CVA TTP, No spinal TTP - Neuro Neuro: Alert and oriented X 3, Normal speech Results - Vitals Vitals: Vital Signs - 24 hr 07/15/18 09:56 Temperature 36.4 C L Heart Rate 107 H Respiratory 16 Rate Blood Pressure 191/114 H O2 Saturation 98 Oxygen O2 Source Room air - Labs Labs: Laboratory Tests 07/15/18 07/15/18 07/15/18 10:46 11:30 11:30 WBC 5.9 RBC 4.05 L Hgb 13.0 Hct 38.8 MCV 95.8 MCH 32.2 H MCHC 33.6 RDW 12.5 Plt Count 262 MPV 7.4 L Neut # (Auto) 4.3 Lymph # (Auto) 1.0 L [place] # (Auto) 0.5 Eos # (Auto) 0.1 Baso # (Auto) 0.1 Absolute Nucleated RBC 0.00 Nucleated RBC % 0.0 Sodium 132 L Potassium 3.6 Chloride 94 L Carbon Dioxide 28 Anion Gap 10.0 BUN 22 H Creatinine 0.6 Estimated GFR (MDRD) 94 Glucose 107 H Calcium 9.2 Total Bilirubin 0.7 AST 26 ALT 15 Alkaline Phosphatase 59 Total Protein 6.8 Albumin 4.0 Globulin 2.8 Albumin/Globulin Ratio 1.4 Lipase 33 Urine Color YELLOW Urine Clarity CLEAR Urine pH 6.0 Ur Specific [place] 1.010 Urine Protein TRACE Urine Glucose (UA) NEGATIVE Urine Ketones NEGATIVE Urine Occult Blood TRACE-LYSE Urine Nitrite NEGATIVE Urine Bilirubin NEGATIVE Urine Urobilinogen 0.2 (NORMAL) Ur Leukocyte Esterase NEGATIVE Ur Microscopic Review NOT INDICATED Urine Culture Comments NOT INDICATED PD MEDICAL DECISION MAKING - ED course ED course: This is an 88-year-old woman with recent UTI treated with Cipro, now with frequency, not associated with dysuria and even the frequency is now resolved. Her workup is negative and watchful waiting was advised. Departure - Departure Disposition: 01 Home, Self Care Clinical Impression: Urinary frequency Condition: Good Record reviewed to determine appropriate education?: Yes Instructions: ED Dysuria Uncertain Cause Comments: Call your doctor to arrange a follow-up appointment, make the next available appointment. In the interim, return anytime if worse or if new symptoms develop. Your blood pressure was elevated today on check into the emergency department. This does not mean that you have hypertension, it is a common phenomenon to come to the emergency department and have elevated blood pressure. I recommend that you see your primary care physician within the week to have it rechecked when you are feeling better.
[2018-07-15 12:10] LABS: ALBUMIN/GLOBULIN RATIO 1.4 (1.0-2.2); BILIRUBIN,TOTAL 0.7 mg/dL (0.2-1.0); CALCIUM 9.2 mg/dL (8.5-10.3); CREATININE 0.6 mg/dL (0.4-1.0); TOTAL PROTEIN 6.8 g/dL (6.7-8.2)
== END 2018-07-15 12:12 | disposition home or self-care (01) ==
LOC: ED 09:40
DX: R35.0 Frequency of micturition (principal); Z87.440 Personal history of urinary (tract) infections; I10 Essential (primary) hypertension
CPT/HCPCS: 36415; 80053; 81001; 81003; 83690; 85025; 87086; 99282; 99283

== ENCOUNTER 2018-08-19 04:14 | Outpatient (CLI) | payer MEDICARE, OTHER | END 2018-08-19 04:15 | disposition critical access hospital (66) | LOC: EMS 04:14 | PROVIDERS: ATTEND Surgery | DX: R07.9 Chest pain, unspecified (principal) ==

== ENCOUNTER 2018-08-19 04:29 | Emergency (ER) | payer MEDICARE, OTHER ==
--- NOTE | 2018-08-19 04:44 | ED Physician Documentation ---
PD HPI CHEST PAIN - Stated complaint Stated Complaint: CP, LEFT SHOULDER PAIN, A-FIB - Chief complaint Chief Complaint: Cardiac - History obtained from History obtained from: Patient, Family, EMS - History of Present Illness Timing - onset: How many days ago (3) Timing - duration: Days Timing - details: Gradual onset, Waxing and waning Pain level now: 5 Quality: Pain Location: Left shoulder/arm Radiation: Back, Other (chest) Improved by: Rest Worsened by: Movement Associated symptoms: No: Shortness of air, Diaphoresis, Nausea, Vomiting, Feeling faint / dizzy, General Weakness, Palpitations, Cough Similar symptoms before: Has not had sx before Recently seen: Not recently seen - Additional information Additional information: BIBA, c/o left shoulder pain that radiates to left upper back x 3 days. Patient attributes this to repetitive activity the day before when she was shredding papers for most of the day. Tonight the pain intensified and radiated to left anterior chest Review of Systems Constitutional: reports: Reviewed and negative Cardiac: reports: Chest pain / pressure. denies: Palpitations, Pedal edema, Calf pain Respiratory: reports: Reviewed and negative GI: reports: Reviewed and negative Skin: denies: Rash Musculoskeletal: reports: Back pain, Extremity pain. 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: Hysterectomy HEENT: Cataracts - Present Medications Home Medications: Ambulatory Orders Medication Instructions Recorded Confirmed Alendronate [Fosamax] 70 mg PO .FREQ 11/22/15 11/22/15 Fluticasone [Flonase] 1 applic REYNA .FREQ 11/22/15 11/22/15 Pramipexole [Mirapex] 0.125 mg PO BID 11/22/15 11/22/15 hydroCHLOROthiazide 12.5 mg PO .FREQ 11/22/15 11/22/15 [Hydrochlorothiazide] Clobetasol Propionate [Temovate] 30 gm TP 08/19/18 Potassium Chloride [Micro-K] 10 meq PO .FREQ 08/19/18 08/19/18 Tacrolimus [Protopic] 100 gm TP BID 08/19/18 08/19/18 - Allergies Allergies/Adverse Reactions: Allergies Allergy/AdvReac Type Severity Reaction Status Date / Time nitrofurantoin Allergy Unknown Verified 07/15/18 10:00 nitrofurantoin Allergy Unknown Verified 07/15/18 10:00 macrocrystalline * [From Macrobid] Sulfa (Sulfonamide Allergy Nausea Verified 07/15/18 10:00 Antibiotics) sulfamethoxazole Allergy Nausea Verified 07/15/18 10:00 [From Septra] trimethoprim [From Septra] Allergy Nausea Verified 07/15/18 10:00 - Social History Does the pt smoke?: No Smoking Status: Never smoker Does the pt drink ETOH?: No Does the pt have substance abuse?: No - Immunizations Immunizations are current?: Yes PD ED PE NORMAL - Vitals Vital signs reviewed: Yes - General General: Alert and oriented X 3, No acute distress, Well developed/nourished - HEENT HEENT: Moist mucous membranes - Neck Neck: Supple, no meningeal sign, No JVD - Cardiac Cardiac: RRR, No murmur - Respiratory Respiratory: No respiratory distress, Clear bilaterally - Abdomen Abdomen: Soft, Non tender - Back Back: No spinal TTP - Derm Derm: Normal color, Warm and dry, No rash - Extremities Extremities: No deformity, No tenderness to palpate, No edema, Other (LUE has FROM intact, although there is reproduction of symptoms with some motions/positions (raising hand above head)) Results - Vitals Vitals: Oxygen O2 Source Room air - EKG (time done) No standard instances Rate: Rate (enter#) (99) Rhythm: NSR, LAE [place]: LAD Intervals: Normal MD QRS: Normal Ischemia: Normal ST segments, Q waves (V1-V3) Other comments: Other comments (PVC) Compare to prior EKG: Old EKG unavailable - Labs Labs: Laboratory Tests 08/19/18 08/19/18 08/19/18 04:40 04:40 04:40 WBC 6.5 RBC 3.93 L Hgb 12.8 Hct 37.3 MCV 95.1 MCH 32.7 H MCHC 34.4 RDW 12.5 Plt Count 277 MPV 7.5 L Neut # (Auto) 4.2 Lymph # (Auto) 1.5 Dare # (Auto) 0.6 Eos # (Auto) 0.2 Baso # (Auto) 0.0 Absolute Nucleated RBC 0.00 Nucleated RBC % 0.1 D-Dimer Sodium 139 Potassium 3.8 Chloride 100 L Carbon Dioxide 29 Anion Gap 10.0 BUN 22 H Creatinine 0.8 Estimated GFR (MDRD) 68 L Glucose 129 H Calcium 9.4 Troponin I < 0.04 08/19/18 05:25 WBC RBC Hgb Hct MCV MCH MCHC RDW Plt Count MPV Neut # (Auto) Lymph # (Auto) Dare # (Auto) Eos # (Auto) Baso # (Auto) Absolute Nucleated RBC Nucleated RBC % D-Dimer 183.5 L Sodium Potassium Chloride Carbon Dioxide Anion Gap BUN Creatinine Estimated GFR (MDRD) Glucose Calcium Troponin I - Rads (name of study) CT chest angio Radiology: Prelim report reviewed, See rad report PD MEDICAL DECISION MAKING - ED course Complexity details: reviewed results, re-evaluated patient, considered differential, d/w patient, d/w family Departure - Departure Disposition: 01 Home, Self Care Clinical Impression: Chest pain Qualifiers: Chest pain type: unspecified Qualified Code(s): R07.9 - Chest pain, unspecified Condition: Good Instructions: ED Chest Pain Atypical Unkn Cause Discharge Date/Time: 08/19/18 08:23
[2018-08-19 05:15] LABS: BASOPHILS % (AUTO) 0.7 %; EOSINOPHILS # (AUTO) 0.2 10^3/uL (0.0-0.7); EOSINOPHILS % (AUTO) 3.4 %; HGB - HEMOGLOBIN 12.8 g/dL (12.0-16.0); LYMPHOCYTES # (AUTO) 1.5 10^3/uL (1.5-3.5); LYMPHOCYTES % (AUTO) 22.5 %; MEAN CORPUSCULAR HEMOGLOBIN 32.7 pg (27.0-31.0); MEAN CORPUSCULAR HGB CONC 34.4 g/dL (32.0-36.0); MEAN CORPUSCULAR VOLUME 95.1 fL (81.0-99.0); MEAN PLATELET VOLUME 7.5 fL (7.9-10.8); MONOCYTES # (AUTO) 0.6 10^3/uL (0.0-1.0); MONOCYTES % (AUTO) 9.7 %; NEUTROPHILS # (AUTO) 4.2 10^3/uL (1.5-6.6); NEUTROPHILS % (AUTO) 63.7 %; PLT - PLATELET COUNT 277 10^3/uL (130-450); RED BLOOD COUNT 3.93 10^6/uL (4.20-5.40); RED CELL DISTRIBUTION WIDTH 12.5 % (12.0-15.0); WHITE BLOOD COUNT 6.5 x10^3/uL (4.8-10.8)
[2018-08-19 05:17] LABS: CALCIUM 9.4 mg/dL (8.5-10.3); CREATININE 0.8 mg/dL (0.4-1.0)
[2018-08-19] MEDS ORDERED: ACETAMINOPHEN 325 MG TABLET PO STA (06:11)
[2018-08-19] MEDS ORDERED: IOVERSOL 320 100 ML VIAL IVP ONE ×2 (06:36→07:04)
--- NOTE | 2018-08-19 07:23 | CT Report ---
Reason: chest pain Procedure Date: 08/19/2018 Accession Number: [id number] / [id number] Procedure: CT - ANGIO CHEST W/WO CPT Code: FULL RESULT: EXAM: CTA CHEST EXAM DATE: 08/19/2018 06:35 AM. CLINICAL HISTORY: Chest pain. Concern for dissection. COMPARISON: Chest radiograph from 04/25/2018. TECHNIQUE: Prior to and following intravenous administration of 100 ML OPTIRAY 320, multiplanar 3D/MIP reconstruction of the thoracic aorta was performed. In accordance with CT protocol optimization, one or more of the following dose reduction techniques were utilized for this exam: automated exposure control, adjustment of mA and/or KV based on patient size, or use of iterative reconstructive technique. FINDINGS: Vascular Structures: Noncontrast images demonstrate no evidence for intramural hematoma. Following administration of intravenous contrast, no dissection of the thoracic or upper abdominal aorta is demonstrated. There is mild atherosclerotic calcification of the thoracic aorta. Ascending thoracic aorta measures up to 3.6 cm (series 13, image 39), which is within normal limits. The descending thoracic aorta is also normal in caliber, measuring up to 2.2 cm (series 13, image 69). There is conventional anatomy of the major thoracic aortic branch vessels, which appear patent along their visualized course. There is no evidence for acute pulmonary embolism to the segmental branches. Lungs/Pleura: There are no areas of dense consolidation. However, in the right lower lobe, there are multiple subcentimeter groundglass nodules, all of which measure less than 6 mm in size (series 6, images 77, 79, 94, 98, 102, 112, 115, and 116). Given their multiplicity and regional location, these could be infectious or inflammatory nature. Additional solid-appearing nodules are present elsewhere. For example, there is a 2 mm nodule in the apical segment of the right upper lobe (series 6, image 28), a 2 mm nodule in the apical posterior segment of the left upper lobe (series 6, image 30), additional 2 mm nodule in the apical posterior segment of the left upper lobe (series 6, image 38), Theodore 2 mm nodules in the superior segment of the left lower lobe (series 6, image 58). A couple of calcified granulomas are demonstrated. There is also partially calcified biapical pleural-parenchymal scarring. No pleural effusion is demonstrated. No pneumothorax. Mediastinum: Heart size is within normal limits. There is no pericardial effusion. Atherosclerotic calcification demonstrated in the distal left main and left anterior descending coronary arteries. No mediastinal or hilar adenopathy. Upper Abdomen: Unremarkable within limitations of phase of contrast enhancement and mild respiratory motion. Other: Multilevel degenerative changes are present in the thoracic spine. No suspicious osseous lesion. IMPRESSION: 1. No aneurysm or dissection of the thoracic or visualized upper abdominal aorta. 2. No evidence of acute pulmonary embolism. 3. Multiple subcentimeter pulmonary nodules, including right lower lobe nodules which are subsolid in appearance. These could be infectious or inflammatory nature given their appearance and regional distribution. However, consider follow-up chest CT in 3-6 months in accordance with Fleischner Society guidelines. RADIA
[2018-08-19] MEDS ORDERED: KETOROLAC 30 MG/ML VIAL IVP STA (07:57)
[2018-08-19 11:04] VITALS: BP 122/68
== END 2018-08-19 08:23 | disposition home or self-care (01) ==
LOC: EDUNIT# → ED 04:29
DX: R07.9 Chest pain, unspecified (principal); R91.8 Other nonspecific abnormal finding of lung field; I10 Essential (primary) hypertension
CPT/HCPCS: 36415; 71275; 80048; 84484; 85025; 85379; 93005; 96374; 99284; A9270; Q9967

== ENCOUNTER 2018-08-21 14:19 | Outpatient (CLI) | payer MEDICARE, OTHER ==
--- NOTE | 2018-08-21 15:21 | XRAY Report ---
Reason: SHOULDER JOINT PAIN,LEFT Procedure Date: 08/21/2018 Accession Number: [id number] / [id number] Procedure: WCP - Shoulder 2 View LT CPT Code: FULL RESULT: EXAM: LEFT SHOULDER RADIOGRAPHY EXAM DATE: 08/21/2018 02:31 PM. CLINICAL HISTORY: Shoulder joint pain, left. Chronic with no known injury. COMPARISON: None. TECHNIQUE: 2 views. FINDINGS: Bones: Normal. No fracture or bone lesion. Joints: The glenohumeral and acromioclavicular joints are normally located with mild degenerative changes of the AC joint. Soft tissues: The visualized hemithorax is unremarkable. No soft tissue swelling. IMPRESSION: Mild AC joint degenerative changes. RADIA
== END 2018-08-21 14:20 | disposition home or self-care (01) ==
LOC: DI.WCP 14:19
PROVIDERS: ATTEND Family Medicine
DX: M19.012 Primary osteoarthritis, left shoulder (principal)

== ENCOUNTER 2018-08-30 16:33 | Outpatient (CLI) | payer MEDICARE, OTHER ==
--- NOTE | 2018-09-05 09:14 | XRAY Report ---
Reason: CERVICAL RADICULOPATHY LEFT Procedure Date: 08/30/2018 Accession Number: [id number] / [id number] Procedure: XR - Cervical Spine 2 View CPT Code: FULL RESULT: EXAM: CERVICAL SPINE RADIOGRAPHY EXAM DATE: 08/30/2018 04:59 PM. CLINICAL HISTORY: Left cervical radiculopathy for 2 weeks. COMPARISONS: None. TECHNIQUE: 3 views. FINDINGS: Alignment: Anterolisthesis of C7 on T1 measures 2 mm. Bones: The cervical vertebral bodies and posterior elements are well visualized from the skull base through C7-T1. No fractures or bone lesions. Disks: The C4-C5 disk space demonstrates mild height loss and anterior endplate spurring. The C5-C7 disk spaces are severely narrowed with endplate spurring. There is mild disk height loss at C7-T1. There is DISH of the thoracic spine. Facets: Multifocal left-sided facet osteoarthritis is seen. Soft Tissues: Unremarkable. IMPRESSION: 1. Mild anterolisthesis of C7 on T1. 2.Severe degenerative disk changes C5-C7. RADIA
== END 2018-08-30 16:34 | disposition home or self-care (01) ==
LOC: DI 16:33
PROVIDERS: ATTEND Family Medicine
DX: M47.812 Spondylosis without myelopathy or radiculopathy, cervical region (principal); M50.321 Other cervical disc degeneration at C4-C5 level; M48.14 Ankylosing hyperostosis [Forestier], thoracic region; M43.13 Spondylolisthesis, cervicothoracic region
CPT/HCPCS: 72040

== ENCOUNTER 2018-11-05 | Outpatient (CLI) | payer MEDICARE, OTHER | END 2018-11-05 23:59 | disposition home or self-care (01) | DX: R35.0 Frequency of micturition (principal) ==

== ENCOUNTER 2018-11-13 10:49 | Outpatient (CLI) | payer MEDICARE, OTHER ==
--- NOTE | 2018-11-14 14:44 | CT Report ---
Reason: PULMONARY NODULE Procedure Date: 11/13/2018 Accession Number: [id number] / [id number] Procedure: CT - CHEST WO CPT Code: FULL RESULT: EXAM: CT CHEST EXAM DATE: 11/13/2018 11:08 AM. CLINICAL HISTORY: PULMONARY NODULE. COMPARISONS: CHEST ANGIO 08/19/2018 6:35 AM. TECHNIQUE: Routine helical CT imaging was performed through the chest. IV contrast: None. Reconstructions: Coronal and sagittal. In accordance with CT protocol optimization, one or more of the following dose reduction techniques were utilized for this exam: automated exposure control, adjustment of mA and/or KV based on patient size, or use of iterative reconstructive technique. FINDINGS: There is mild respiratory motion artifact. Lungs/Pleura: There is a small calcified nodule within the right lung apex which probably represents a granuloma. There is a 0.3 cm pulmonary nodule within the left lower lobe which is stable (image 35 series 4). 2-3 mm sub-solid nodules within the right lower lobe probably persist; assessment is limited secondary to motion artifact. No definitely new nodules are seen. There is no evidence of lobar consolidation or effusion. There is no pneumothorax. Mediastinum: Heart size is within normal limits. There are scattered coronary artery and aortic calcifications. There are no enlarged axillary, supraclavicular, mediastinal, or hilar lymph nodes. Bones: Unremarkable. Visualized Abdomen: The visualized portions of the upper abdominal organs demonstrate no acute abnormalities. Other: None. IMPRESSION: 1. Study is limited by respiratory motion artifact. 2. Previously characterized 2-3 mm sub-solid nodules within the right lower lobar are likely stable. These nodules would represent an atypical appearance for cancer. Per current Ronald Society recommendations, interval CT follow-up in 2 years could be considered as indicated. 3. No acute pulmonary CT process. 4. Heart size is within normal limits. Recommend follow-up of the described nodule(s) according to the following guidelines: Fleischner Society Recommendations 2017 MacMahon et al. Radiology 2017 Solid Nodules-Low Risk Patients: <6 mm (single or multiple) - No routine follow-up* 6-8 mm (single) -CT at 6-12 months, then consider CT at 18-24 months 6-8mm (multiple) -CT at 3-6 months, then consider at CT 18-24 months >8 mm (single) -Consider CT, PET/CT, or tissue sampling at 3 months >8 mm (multiple) -CT at 3-6 months, then consider CT at 18-24 months Solid Nodules-High Risk Patients: <6 mm (single or multiple) -Optional CT at 12 months* 6-8 mm (single) -CT at 6-12 months, then CT at 18-24 months 6-8mm (multiple) -CT at 3-6 months, then CT at 18-24 months >8 mm (single) -Consider CT, PET/CT, or tissue sampling at 3 months >8 mm (multiple) -CT at 3-6 months, then at 18-24 months *Nodules < 6mm do not require routine follow-up, but suspicious nodule morphology, upper lobe location, or both may warrant 12 month follow-up Subsolid nodules: <6 mm (single, GG or part solid) -No routine follow-up >=6 mm (single GG) -CT at 6-12 months to confirm, then CT q2 years until 5 years >=6 mm (single part solid) -CT at 3-6 months to confirm, if unchanged and solid <6mm, annual CT for 5 years <6 mm (multiple GG or part solid) -CT at 3-6 months. If stable, consider CT at 2 and 4 years >=6 mm (multiple GG or part solid) -CT at 3-6 months. Subsequent management based on most suspicious nodule(s). Consider follow-up at 2 and 4 years for certain suspicious nodules <6mm. If solid component develops or growth, consider resection. RADIA
== END 2018-11-13 10:50 | disposition home or self-care (01) ==
LOC: DI 10:49
PROVIDERS: ATTEND Family Medicine
DX: R91.8 Other nonspecific abnormal finding of lung field (principal)
CPT/HCPCS: 71250

== ENCOUNTER 2018-11-13 10:51 | Outpatient (CLI) | payer MEDICARE, OTHER ==
--- NOTE | 2018-11-13 17:12 | MRI Report ---
Reason: CERVICAL RADICULOPATHY, LEFT Procedure Date: 11/13/2018 Accession Number: [id number] / [id number] Procedure: MRI - Cervical Spine W/O CPT Code: FULL RESULT: EXAM: MRI CERVICAL SPINE WITHOUT CONTRAST EXAM DATE: 11/13/2018 12:32 PM. CLINICAL HISTORY: Cervical radiculopathy, left. "Numbness in both hands. Neck pain." COMPARISONS: CERVICAL SPINE 2 VIEW 08/30/2018 4:43 PM. TECHNIQUE: Multiplanar, multisequence T1-weighted and fluid-sensitive sequences of the cervical spine without contrast. Other: None. FINDINGS: Neurologic Structures: The visualized posterior fossa structures are unremarkable. No signal abnormality in the visualized spinal cord. Alignment: 1. Anterolisthesis 2 mm C4 on C5. 2. Anterolisthesis 3 mm C7 on T1. Bone Marrow: No gross fractures or bone lesions. No marrow edema. Interspace Levels/Facets: C1-C2: Unremarkable. C2-C3: Mild left facet joint arthrosis. Negative for spinal canal stenosis or foraminal stenosis. C3-C4: Posterior 2 mm disk protrusion which contacts the anterior cervical cord without cord deformity or cord signal abnormality. Ligamentum flavum thickening. Severe bilateral facet hypertrophic arthropathy. Mild to moderate left foraminal stenosis from facet hypertrophy. Moderate right foraminal stenosis from facet degenerative hypertrophy. Mild central spinal canal stenosis. C4-C5: Ligamentum flavum thickening. Posterior 2 mm disk protrusion. Mild central spinal canal stenosis. Moderate bilateral facet joint arthrosis. The left neural foramen is negative for stenosis. Mild left Luschka joint hypertrophic spurring. Moderate right foraminal stenosis from facet hypertrophy and foraminal 2 mm disk protrusion osteophyte complex. Moderate disk degeneration. C5-C6: Severe disk degeneration. Posterior left paracentral 3 mm disk protrusion osteophyte complex with mild ventral effacement of the cervical cord without cord signal abnormality. Central AP spinal canal diameter is 6 mm. Moderate central spinal canal stenosis. Mild ligamentum flavum thickening. Severe left foraminal stenosis from Luschka joint hypertrophic spurring. Moderate right foraminal stenosis from 2 mm foraminal disk protrusion osteophyte complex. C6-C7: Severe disk degeneration. Mild central spinal canal stenosis. Mild bilateral facet joint arthrosis. Mild to moderate bilateral foraminal stenosis from luschka joint degenerative hypertrophy. C7-T1: Superior migration of a small anterior left paramedian 3 mm disk extrusion without spinal canal stenosis. Severe left and moderate right facet hypertrophic arthropathy. Mild bilateral foraminal stenosis from facet degenerative hypertrophy and anterolisthesis 3 mm C7 on T1. Moderate disk degeneration. T1-T2: Posterior 2 mm disk protrusion. Negative for spinal canal stenosis or foraminal stenosis. Mild facet joint arthrosis. Musculature: Normal. No edema or fatty atrophy. Other: The paravertebral and prevertebral soft tissues are normal. IMPRESSION: 1. The spinal cord from the cervicomedullary junction to T3 is negative for signal abnormality. 2. Moderate central spinal canal stenosis, severe left foraminal stenosis and moderate right foraminal stenosis C5-C6. 3. Mild central spinal canal stenosis and moderate right foraminal stenosis C4-C5. 4. Mild central spinal canal stenosis, mild to moderate left foraminal stenosis and moderate right foraminal stenosis C3-C4. 5. Mild to moderate bilateral foraminal stenosis C6-C7. RADIA
== END 2018-11-13 10:52 | disposition home or self-care (01) ==
LOC: DI 10:51
PROVIDERS: ATTEND Physician Assistant Medical
DX: M50.21 Other cervical disc displacement, high cervical region (principal); M47.812 Spondylosis without myelopathy or radiculopathy, cervical region; M43.12 Spondylolisthesis, cervical region; M48.02 Spinal stenosis, cervical region; M50.321 Other cervical disc degeneration at C4-C5 level
CPT/HCPCS: 71250; 72141

== ENCOUNTER 2018-11-15 08:00 | Outpatient (CLI) | payer MEDICARE, OTHER | END 2018-11-15 23:59 | disposition home or self-care (01) | LOC: LAB.R 08:00 | PROVIDERS: ATTEND Physician Assistant Medical | DX: R35.0 Frequency of micturition (principal) | CPT/HCPCS: 87086 ==

== ENCOUNTER 2018-12-10 15:30 | Outpatient (CLI) | payer MEDICARE, OTHER | END 2018-12-10 23:59 | disposition home or self-care (01) | LOC: LAB.R 15:30 | PROVIDERS: ATTEND Physician Assistant | DX: R35.0 Frequency of micturition (principal) | CPT/HCPCS: 81002; 87086; 87181 ==

== ENCOUNTER 2018-12-25 11:15 | Outpatient (CLI) | payer MEDICARE, OTHER | END 2018-12-25 23:59 | disposition home or self-care (01) | LOC: LAB.R 11:15 | PROVIDERS: ATTEND Family Medicine | DX: N39.0 Urinary tract infection, site not specified (principal) | CPT/HCPCS: 87086; 87181 ==